=== PATIENT | female | born 1990 | race Caucasian/White ===

== ENCOUNTER 2017-09-25 22:51 | Emergency (ER) | payer SELFPAY ==
[2017-09-25] MEDS: TETRACAINE 0.5% OPHTH SOLUTION 4ML BOTTLE. OS (23:45)
[2017-09-25] MEDS: FLUORESCEIN OPHTH TEST STRIP. OS (23:45)
== END 2017-09-26 00:01 | disposition home or self-care (01) ==
LOC: ER 09-26 00:01
DX: S05.02XA Injury of conjunctiva and corneal abrasion without foreign body, left eye, initial encounter (principal); H10.9 Unspecified conjunctivitis; X58.XXXA Exposure to other specified factors, initial encounter; Y93.89 Activity, other specified; Y92.89 Other specified places as the place of occurrence of the external cause; Y99.8 Other external cause status
CPT/HCPCS: 99283